=== PATIENT | male | born 1985 | race Caucasian/White ===

== ENCOUNTER 2021-08-25 15:53 | Emergency (ER) | payer BC, MEDICAID ==
[~2021-08-25] VITALS: Ht 190.5 cm; Wt 90.0 kg
[2021-08-25] MEDS ORDERED: HYDROCODONE/ACETAMINOPHEN 5/325MG TABLET PO ONE (16:15)
[2021-08-25] MEDS ORDERED: TETANUS, DIPHTHERIA, PERTUSSIS VAC/PF 0.5ML (>10YR OLD) IM ONE (16:30)
[2021-08-25] MEDS ORDERED: BACITRACIN ZINC OINT UDPKT TOP ONE (16:30)
[2021-08-25] MEDS ORDERED: MORPHINE SULFATE 4 MG/ML CPJ (NOT FOR IM USE) IV ONE ×2 (17:00→18:30)
[2021-08-25] MEDS ORDERED: LIDOCAINE HCL/PF 1% 10 MG/ML 5ML VIAL INFIL ONE (17:00)
[2021-08-25] MEDS ORDERED: LIDOCAINE HCL 1% 20ML VIAL (Pyxis) INJ INFIL NR (17:14)
[2021-08-25] MEDS ORDERED: KETAMINE HCL 50 MG/ML 10ML IV ONE (17:45)
[2021-08-25] MEDS ORDERED: IBUP-2029 MT (19:16)
[2021-08-25] MEDS ORDERED: HYDR-4001 MT (19:16)
[2021-08-25 20:00] VITALS: BP 152/98
== END 2021-08-25 20:19 | disposition home or self-care (01) ==
LOC: ER 16:09
DX: S42.291A Other displaced fracture of upper end of right humerus, initial encounter for closed fracture (principal); R03.0 Elevated blood-pressure reading, without diagnosis of hypertension; W20.8XXA Other cause of strike by thrown, projected or falling object, initial encounter; Y93.89 Activity, other specified; Y92.89 Other specified places as the place of occurrence of the external cause
CPT/HCPCS: 23650; 73030; 73060; 90471; 90715; 99152; 99285; J2270; J3490; Z7610; A4565; L3670